=== PATIENT | female | born 1960 | race Caucasian/White ===

== ENCOUNTER → 2017-09-03 | Outpatient (CLI) | payer OTHER ==
[~2017-09-03] MED LIST: ATOR-22 PO; IBUP-103 PO; LEVO100T7 PO; MULT-506 PO; OXYC1TAB3 PO; PHN/25 PO; RXC5 PO; VENL150C56 PO; VNTHFA/IN INH
[2017-09-03 17:52] LABS: BASO % 0.5 %; BASO ABS # 0.04 K/uL (0-0.2); EOS % 4.2 %; EOS ABS # 0.31 K/uL (0-0.5); HEMATOCRIT 33.1 % (37-47); HEMOGLOBIN 10.9 g/dL (12.0-16.0); IG# 0.02 K/uL (0.00-0.02); LYMPH % 21.6 %; LYMPH ABS # 1.59 K/uL (1.2-3.4); MEAN CELL VOLUME 94.8 fL (80-100); MEAN CORPUSCULAR HEMOGLOBIN 31.2 pg (25-34); MEAN CORPUSCULAR HGB CONC 32.9 g/dl (32-36); MEAN PLATELET VOLUME 9.5 fL (7.4-10.4); MONO % 6.9 %; MONO ABS # 0.51 K/uL (0.11-0.59); NEUT % 66.5 %; NEUT ABS # 4.89 K/uL (1.4-6.5); PLATELET COUNT 357 K/uL (130-400); RED CELL DISTRIBUTION WIDTH SD 44.7 fL (36.4-46.3); WHITE BLOOD COUNT 7.36 K/uL (4.8-10.8)
[2017-09-03 18:00] LABS: PTT PATIENT 25.1 SECONDS (21.0-31.0)
[2017-09-03 18:28] LABS: BLOOD UREA NITROGEN 8 mg/dl (7-18); CALCIUM 8.8 mg/dl (8.5-10.1); CARBON DIOXIDE 29 mmol/L (21-32); CREATININE 0.51 mg/dl (0.60-1.20); GLUCOSE 85 mg/dl (70-99); POTASSIUM 3.3 mmol/L (3.5-5.1); SODIUM 136 mmol/L (136-145)
== END | disposition home or self-care (01) ==
LOC: C.LABMFLN 13:52
PROVIDERS: ATTEND Physician Assistant
DX: Z01.812 Encounter for preprocedural laboratory examination (principal)

== ENCOUNTER → 2017-09-04 | Day surgery (SDC) | payer OTHER ==
--- NOTE | 2017-09-03 14:59 | HISTORY & PHYSICAL EXAMINATION ---
DATE OF ADMISSION: 09/04/2017 SUBJECTIVE CHIEF COMPLAINT: Left shoulder pain. HISTORY OF PRESENT ILLNESS: The patient is a 56-year-old female that presented to the office today with left shoulder pain. She states that she ended up tripping down the last 4 steps of her basement while carrying a laundry basket. She fell directly on to her left shoulder. She had significant pain. She presented to her primary care doctor, got x-rays of her left shoulder. The x-rays demonstrated a displaced left proximal humerus fracture. The patient was seen in the office today and is scheduled to have a left ORIF proximal humerus fracture. PAST MEDICAL HISTORY: Significant for hypothyroidism, hypercholesterolemia, depression and COPD. PAST SURGICAL HISTORY: Tonsillectomy. FAMILY HISTORY: Noncontributory. SOCIAL HISTORY: She drinks alcohol once a week. She smokes a pack a day for 30+ years. She denies IV or illegal drug use. She lives in a 1-story house. She is currently unemployed. ALLERGIES: She has no known drug allergies. MEDICATIONS: Atorvastatin 20 mg daily, levothyroxine 100 mcg daily, multivitamin, Effexor 150 mg daily, albuterol 2 puffs every 4 hours as needed for shortness of breath, triamcinolone ointment apply topical to affected area 2 times a day. REVIEW OF SYSTEMS: She denies headaches, fevers, chills, double vision, blurry vision, sore throat, cough, chest pain, nausea, vomiting, diarrhea, constipation, numbness, tingling, tired urinary difficulties, thoughts to harm herself or harm others. She is positive for joint pain and joint stiffness of her left shoulder. PHYSICAL EXAMINATION: GENERAL APPEARANCE: The patient is a 56-year-old female, sitting, in no acute distress. She is well-dressed, well-nourished. She is awake, alert and oriented x3. VITAL SIGNS: She is 5 feet 8 inches tall, 137 pounds, blood pressure is 142/92. HEENT: Extraocular movements are intact. Mucosa was moist. No septal deviation. NECK: Supple, no lymphadenopathy, no JVD, and no thyromegaly. HEART: Regular rate and rhythm. No murmurs or gallops. LUNGS: There is diffuse inspiratory and expiratory wheeze throughout all lung hernandez. ABDOMEN: Soft, nontender, nondistended. Normal bowel sounds. No hepatosplenomegaly. EXTREMITIES: Paying particular attention to the left upper extremity. She has diffuse ecchymosis and tenderness over the proximal humerus. She has swelling that goes down to the elbow as well as to the hand. Pulses were compared bilaterally and were equal. She does have normal neurovascular sensation. NEUROLOGIC: Cranial nerves II-XII were intact. Pulses were compared bilaterally and were equal. IMAGING: Three views x-ray of the left shoulder demonstrated a displaced proximal humerus fracture. IMPRESSION: Left displaced proximal humerus fracture. PLAN: The patient is scheduled for left ORIF proximal humerus fracture. Risks and benefits to surgery were discussed with patient and included but not limited to infection, DVT, pain, stiffness, need for revision surgeries, nonunion, damage to blood vessels, damage to nerves, failure to relieve her symptoms, anesthesia risks and were all discussed with patient. She understands these risks and she wishes to proceed. All questions were answered to her satisfaction. No DVT prophylaxis is needed at this time. Discharge will be going home with self-care. AKOSUA
[2017-09-03 16:12] VITALS: BMI 21.0
[~2017-09-04] VITALS: Ht 170.2 cm; Wt 62.3 kg
[~2017-09-04] MED LIST changes: +ATROPINE SULFATE 0.1 MG/ML 5ML SYR IV PRN; +CEFAZOLIN 1000MG IV PUSH 7.5 ML IV SCH; +DEXAMETHASONE SOD INJ 4 MG/ML VIAL ONE; +EpHEDrine SULFATE INJ 50 MG/ML AMP IV PRN; +FENTANYL CITRATE INJ 50 MCG/1 ML 2 ML VIAL IV PRN; +FENTANYL CITRATE INJ 50 MCG/1 ML 2 ML VIAL ONE; +GLYCOPYRROLATE INJ 0.2 MG/ML VIAL ONE; +HYDROmorphone INJ 1 MG/ML SYR IV PRN; +KETOROLAC TROMETHAMINE 30 MG/ML VIAL ONE; +LIDOCAINE HCL 2% 2 ML VIAL (20MG/ML) ONE; +MIDAZOLAM HCL 1 MG/ML 2ML VIAL ONE; +NEOSTIGMINE METHYLSULFATE 5 MG/5 ML SYR ONE; +ONDANSETRON INJ 2 MG/ML 2 ML VIAL IV PRN; +ONDANSETRON INJ 2 MG/ML 2 ML VIAL ONE; +OXYCODONE/ACETAMINOPHEN 5-325 TAB PO PRN; +PATIENT'S HEIGHT AND/OR WEIGHT NEEDED SCH; +PHENYLEPHRINE 100MCG/ML 5ML SYR IV PRN; +PHENYLEPHRINE HCL INJ 10 MG/ML VIAL ONE; +PROMETHAZINE HCL INJ 12.5 MG in SODIUM CHLORIDE 0.9% 50ML 50 ML IV PRN; +PROPOFOL IV EMULSION 10 MG/ML 20 ML VIAL IV ONE; +ROCURONIUM BROMIDE 10 MG/ML 5 ML VIAL IV ONE; +ROPIVACAINE 0.5% 5 MG/ML 30 ML VIAL ONE; +SODIUM CHLORIDE 0.9% 1000ML 1,000 ML IV SCH
[2017-09-04 11:40] VITALS: BP 122/84; PULSE 93; TEMP 36.1; O2SAT 96; Ht 170.2 cm; Wt 62.3 kg
--- NOTE | 2017-09-04 12:54 | History & Physical Bridge Note ---
H&P Re-Evaluation Bridge Note: I have examined the patient, reviewed the History & Physical and in the interval since the performance of the History & Physical I have noted the following changes of clinical significance: No changes noted
--- NOTE | 2017-09-04 14:37 | [facility] Operative Report ---
Operative Report Operative Date Sep 04, 2017. Pre-Operative Diagnosis Left proximal humerus fracture Post-Operative Diagnosis Same Procedure(s) Performed Open reduction internal fixation proximal humeral fracture Surgeon Dr. Bee Ergonomics Technician Surgeon(s) Devendra Duncan PA-C Estimated Blood Loss 20ml Specimens none Drains None Anesthesia Type General Regional Complication(s) none Disposition Recovery Room / PACU Indications The patient is a 56-year-old female sustained a fall onto left upper extremity. She sustained a displaced left proximal humerus fracture. Given the amount of displacement and angulation I recommended open reduction internal fixation. Description of Procedure Risks, benefits and alternatives to surgery including, but not limited to, infection DVT, pain, stiffness, need for revision surgery, failure to relieve all symptoms, damage to blood vessels, damage to nerves, risk of anesthesia were discussed with the patient and they wished to proceed. The patient was identified. Laterality was confirmed and marked. The patient received a preoperative antibiotic as well as an interscalene block. They were transferred to the operating room and placed in the supine position and induced into general endotracheal anesthesia per the anesthesia staff. There were then placed in a slight beachchair position. All pressure points were well padded.. We confirmed that we're able to achieve proper visualization of the fracture under fluoroscopy the arm was then prepped and draped in the usual standard manner with ChloraPrep. I made a longitudinal incision just lateral to the coracoid, sharply incising through the skin and utilizing Bovie electrocautery to achieve hemostasis. I identified the cephalic vein and mobilized it laterally with the deltoid. I mobilize the pectoralis and mobilize this medially releasing a small portion of the upper border of the pec tendon to improve visualization. I then identified and mobilized the conjoined tendon. I identified the long head of the biceps tendon. Holding traction on the arm I then reduced the fracture. I then positioned a standard size Synthes proximal humerus locking plate into position. A pleasant nonlocking screw into the oblong hole and adjusted the height of the plate as necessary. I then placed 2 locking screws into the humeral head while holding the reduction. I placed an additional locking screw distally. I then took the arm through live fluoroscopy to ensure that we maintained good reduction and plate placement. I was satisfied with reduction of the fracture and the alignment of the plate. I then placed 2 additional locking screws distally and placed additional locking screws proximally into the humeral head. I then again confirmed reduction on AP and scapular Y views and I was satisfied with the reduction as well as the screw lengths. I thoroughly irrigated the wound. The deltopectoral interval was closed with interrupted #1 Ethibond suture. The subcutaneous tissue was closed with interrupted 2-0 Vicryl suture. The skin was closed with siomara. A sterile dressing was applied. A sling was placed. All needle and sponge counts were correct at the end of the procedure. The patient was transferred to the PACU in stable condition without apparent complication. The PA-C was necessary for assistance with procedure for assistance in positioning, I attest to the content of the Intraoperative Record and any orders documented therein. Any exceptions are noted below.
--- NOTE | 2017-09-04 14:59 | DIAGNOSTIC IMAGING REPORT ---
Radiology L HUMERUS MIN 2 VIEW ROUTINE CLINICAL HISTORY: 56 years-old Female presenting with LEFT ORIF PROXIMAL HUMERUS FX. TECHNIQUE: 5 fluoroscopic spot image(s) obtained as part of an intraoperative procedure. COMPARISON: None. FINDINGS/IMPRESSION: Buttress plate and screw fixation of the left femoral head and proximal metaphysis. Slight angulation at the obliquely oriented surgical neck fracture. No impaction of the fracture plane. Grossly normal anatomic alignment on frontal view. Please see surgical report for further details. Fluoroscopy dosage (mGy): 7.48. Fluoroscopy time: 122.9 seconds. Number of fluoroscopic spot images: 5. Electronically signed by: Abner Dunbar M.D. 09/04/2017 2:57 PM Dictated Date/Time: 09/04/2017 2:52 PM
--- NOTE | 2017-09-04 15:11 | Discharge Instructions ---
Discharge Instructions Date of Service Sep 04, 2017. Visit Reason for Visit: Left Proximal Humerus Fracture Discharge Discharge Diagnosis / Problem: S/P Left ORIF Discharge Goals Goal(s): Decrease discomfort, Improve function Activity Recommendations Activity Limitations: per Instructions/Follow-up section Anesthesia . Post Anesthesia Instructions: If you have had General Anesthesia or IV Sedation: * Do not drive today. * Resume driving when surgeon permits. * Do not make important decisions or sign legal documents today. * Call surgeon for: 1. Temperature elevations greater than 101 degrees F. 2. Uncontrollable pain. 3. Excessive bleeding. 4. Persistent nausea and vomiting. 5. Medication intolerance (nausea, vomiting or rash). * For nausea and vomiting use only clear liquids such as: tea, soda, bouillon until nausea subsides, then gradually increase diet as tolerated. * If you have any concerns or questions, call your surgeon's office. If physician is unavailable and it is an emergency, call 911 or go to the nearest emergency room. . Instructions / Follow-Up Instructions / Follow-Up ACTIVITY RECOMMENDATIONS: SELF CARE INSTRUCTIONS AFTER ORIF PROXIMAL HUMERUS FRACTURE A. You are to wear your sling/immobilizer at all times EXCEPT when performing your daily exercises and for hygiene purposes. B. You may perform dry, daily dressing changes. Please keep your incision covered. You may shower 48 hours after surgery. Do not apply soap or any ointment/ lotions directly over incision. Do not soak incision in bath tub/swimming pool. C. You make take your arm out of the sling for elbow and wrist exercises only. Do not more the shoulder. D. You may use ice as needed to operative shoulder. SPECIAL CARE INSTRUCTIONS: VERY IMPORTANT TO READ AND REVIEW A. There are a few signs you need to watch for after you are home. Call [facility] at [phone] if you experience any of the followin. Increased severe shoulder pain. Some pain is expected especially when you exercise. 2. Increased swelling in you shoulder or arm; pain or swelling in either upper extremity. 3. Any fluid drainage from the incision. 4. Shortness of breath or chest pain. B. Please call [facility] at [phone] if you have any questions or concerns about your operation or recovery. C. Call your physician if: 1. Temperature is greater than 101 degrees (F). 2. Pain is not relieved by prescribed pain medications. 3. Increase drainage or redness from incision. 4. Unanswered questions or concerns. FOLLOW UP VISIT: Please call [facility] at [phone] to schedule a follow up appointment with Dr. Bee or his PA in 12-14 days from your surgery date. Diet Recommendations Recommended Home Diet: no limitations Procedures Procedures Performed: Open reduction internal fixation proximal humeral fracture Pending Studies Studies pending at discharge: no Medical Emergencies . Who to Call and When: Medical Emergencies: If at any time you feel your situation is an emergency, please call 911 immediately. . Non-Emergent Contact Non-Emergency issues call your: Surgeon Call Non-Emergent contact if: temperature is above 101.5, your pain is worsening, wound has increased drainage, wound has increased redness . . "Provider Documentation" section prepared by Devendra Duncan. . [place] Drug Monitoring Program Search Results: patient reviewed within database, no issues identified
--- NOTE | 2017-09-04 15:46 | Anesthesiology Progress Note ---
Anesthesia Post Op Note Date & Time Sep 04, 2017 at 15:46 Vital Signs Pain Intensity: 0 Vital Signs Past 12 Hours Date Time Temp Pulse Resp B/P (MAP) Pulse Ox O2 Delivery O2 Flow Rate FiO2 09/04/17 15:35 91 18 115/74 91 Room Air 09/04/17 15:30 122/68 09/04/17 15:25 99 18 70/58 98 Oxymask 10 09/04/17 15:17 36.4 99 18 128/79 96 Oxymask 10 09/04/17 11:40 36.1 93 20 122/84 (97) 96 Room Air Notes Mental Status: alert / awake / arousable, participated in evaluation Pt Amnestic to Procedure: Yes Nausea / Vomiting: adequately controlled Pain: adequately controlled Airway Patency, RR, SpO2: stable & adequate BP & HR: stable & adequate Hydration State: stable & adequate Anesthetic Complications: no major complications apparent
[2017-09-04 16:01] VITALS: BP 105/63; PULSE 87; TEMP 36.5; O2SAT 89
[2017-09-04 16:31] VITALS: BP 110/65; PULSE 82; TEMP 37; O2SAT 93
== END | disposition home or self-care (01) ==
LOC: C.ACU 11:14
PROVIDERS: ATTEND Orthopaedic Surgery
DX: S42.292A Other displaced fracture of upper end of left humerus, initial encounter for closed fracture (principal); E03.9 Hypothyroidism, unspecified; E78.00 Pure hypercholesterolemia, unspecified; F32.9 Major depressive disorder, single episode, unspecified; J44.9 Chronic obstructive pulmonary disease, unspecified; Z90.89 Acquired absence of other organs; F17.200 Nicotine dependence, unspecified, uncomplicated; W10.8XXA Fall (on) (from) other stairs and steps, initial encounter; Y93.E2 Activity, laundry; Y92.018 Other place in single-family (private) house as the place of occurrence of the external cause